=== PATIENT | female | born 1990 | race Caucasian/White ===

== ENCOUNTER 2018-04-19 10:05 | Inpatient (IN) ==
[2018-04-19] MEDS ORDERED: Ringers Solution, Lactated 1,000 ML IVC ONE (11:05)
[2018-04-19] MEDS ORDERED: Oxytocin 20 units/ LR 1000 mL 20 UNIT/1,000 ML BAG IVC ONE (11:05)
[2018-04-19] MEDS ORDERED: Famotidine 20 MG/2 ML VIAL IVP ONE (11:05)
[2018-04-19] MEDS ORDERED: Metoclopramide 10 MG/2 ML VIAL IVP ONE (11:05)
[2018-04-19] MEDS ORDERED: cefOXitin 1,000 MG in Water for inj. (sterile) 20 ML 10 ML IVP ONE (11:11)
[2018-04-19] MEDS ORDERED: MetroNIDAZOLE 500 MG/100 ML 500 MG/100 ML BAG IVPB ONE (11:11)
[2018-04-19] MEDS ORDERED: Oxytocin 20 units/ LR 1000 mL 20 UNIT/1,000 ML BAG IVC SCH (11:15)
[2018-04-19] MEDS ORDERED: Ringers Solution, Lactated 1,000 ML IVC SCH (11:15)
[2018-04-19 11:35] LABS: Basophils % 0.1 %; Eosinophils # 0.1 K/mcL (0.0-0.6); Eosinophils % 0.4 %; Hematocrit 35.1 % (35.3-44.9); Hemoglobin 11.6 g/dL (11.5-15.4); Immature Granulocytes % 0.5 % (0-4); Lymphocytes # 2.4 K/mcL (0.6-4.6); Lymphocytes % 19.6 %; Mean Corpuscular Hemoglobin 26.6 pg (28.0-33.3); Mean Corpuscular Volume 80.5 fL (83.0-100.0); Mean Platelet Volume 10.8 fL (9.4-12.4); Monocytes # 0.8 K/mcL (0.0-1.3); Monocytes % 6.5 %; Platelet Count 166 K/mcL (140-400); Red Blood Count 4.36 M/mcL (3.82-4.97); Red Cell Distribution Width 14.5 % (11.5-14.5); Segmented Neutrophils % 72.9 %
[2018-04-19 11:53] LABS: Amphetamine Screen,Urine Negative ng/mL (Cutoff=1000); Barbiturate Screen,Urine Negative ng/mL (Cutoff=200); Benzodiazepines Screen,Urine Negative ng/mL (Cutoff=200); Cannabinoid Screen,Urine Negative ng/mL (Cutoff = 50); Cocaine Screen,Urine Negative ng/mL (Cutoff= 300); Opiate Screen,Urine Negative ng/mL (Cutoff=300); Phencyclidine Screen,Urine Negative ng/mL (Cutoff=25)
--- NOTE | 2018-04-19 12:35 | OB/GYN History & Physical ---
Date of Encounter: 04/19/18 Time of Encounter: 12:33 Assessment and Plan (1) 39 weeks gestation of Current visit: Yes Status: Acute The patient is here for a repeat section. She does not want a tubal ligation. She has given informed consent (2) History of 2 sections Current visit: Yes Status: Chronic The patient is requesting a repeat section given her previous history (3) Gestational diabetes mellitus Current visit: Yes Status: Acute The patient reports good glucose control, hemoglobin A1c reassuring Qualifiers: Gestational diabetes mellitus control: diet-controlled Trimester: third trimester Qualified Code(s): O24.410 - Gestational diabetes mellitus in , diet controlled History of Present Illness Chief complaint: Scheduled repeat section HPI: Ms. Casiano is a 27 year old female 002 with an EDC of 04/23/18 x 9 week ultrasound who presents to labor and delivery for a scheduled repeat section. Her has been complicated by history of 2 previous sections, gestational diabetes for which the patient was infrequent with blood sugar logs but hemoglobin A1c was reassuring. She did have a positive urine drug screen for benzodiazepines which she states a family member had given her prior to attending a . Repeat drug screen was negative. The patient also is varicella nonimmune and should be vaccinated after delivery. She does not desire tubal ligation. 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 - Social History Smoking Status: Never smoker Smokeless Tobacco Status: No Alcohol use: none Drug use: other (As per history of present illness) - Family History Paternal Grandfather Living Status: Hx Family Cardiac Disorders: Yes (mi) Hx Family Respiratory Disorders: No Hx Family Cancer: Yes Hx Family Endocrine Disorder: Yes (dm) Obstetrical History - Pregnancies : 3 Para: 2 Term: 2 Livin Medications and Allergies Ferrous Sulfate 324 mg PO DAILY 01/15/15 [History] Vit/FA 1 each PO DAILY #14 tablet 03/08/15 [Rx] Allergy/AdvReac Type Severity Reaction Status Date / Time acetaminophen [From Percocet] AdvReac Nausea Verified 04/19/18 11:05 codeine AdvReac Nausea Verified 04/19/18 11:05 hydrocodone [From Vicodin] AdvReac Nausea Verified 04/19/18 11:05 Oxycodone [From Percocet] AdvReac Nausea Verified 04/19/18 11:05 Review of System OB All systems PM: reviewed and no additional remarkable complaints except as stated - Constitutional Constitutional ROS IM: weight gain - Muscloskeletal Musculoskeletal: myalgias - Integumentary Integumentary: change in hair (Hair loss) - Endocrine Endocrine: other (Gestational diabetes) Exam - Vital Signs Vital signs: Afebrile, vital signs stable - Constitutional Constitutional: well developed, well nourished, no acute distress, obese - HEENT HEENT: Normocephaly, Mucus Membranes Moist - Neck Neck exam: supple - Lungs Respiratory exam: CTAB - Cardiovascular Cardiovascular exam: RRR - Abdomen Abdomen: Present: bowel sounds normal, gravid, non tender - Extremities Extremities exam: pedal edema, warm - Vulva Vulva: bilateral: normal - Anus/Rectum Anus/Rectum: Present: normal perianal skin Results Result Diagrams: 04/19/18 11:18 04/19/18 11:18 Abnormal lab results WBC 12.4 K/mcL (4.3-11.1) H 04/19/18 11:18 Hct 35.1 % (35.3-44.9) L 04/19/18 11:18 MCV 80.5 fL (83.0-100.0) L 04/19/18 11:18 MCH 26.6 pg (28.0-33.3) L 04/19/18 11:18 Neutrophils # 9.0 K/mcL (1.6-8.9) H 04/19/18 11:18 All other labs normal. - VTE Documentation of Mechanical Device: Intermittent pneumatic compression device
--- NOTE | 2018-04-19 12:57 | Anesthesia Evaluation PreOp ---
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 HX Other Medical History: Diabetes Type II (gestational diabetes, controlled with diet) Alcohol Use: none Drug use: none, other (As per history of present illness) Medications and Allergies Ferrous Sulfate 324 mg PO DAILY 01/15/15 [History] Vit/FA 1 each PO DAILY #14 tablet 03/08/15 [Rx] Allergy/AdvReac Type Severity Reaction Status Date / Time acetaminophen [From Percocet] AdvReac Nausea Verified 04/19/18 11:05 codeine AdvReac Nausea Verified 04/19/18 11:05 hydrocodone [From Vicodin] AdvReac Nausea Verified 04/19/18 11:05 Oxycodone [From Percocet] AdvReac Nausea Verified 04/19/18 11:05 - Meds/Allergy Pre-op Review Medications Reviewed: Yes Allergies Reviewed: Yes Beta Blockers on Current Med List: No Anesthesia Results - Labs 04/19/18 11:18 04/19/18 11:18 Anesthesia Exam Weight: 101 kg. BMI 34 NPO (# of Hours): over 8 hours - HEENT Pupil (Motor): Pupils equal Mallampati: II Teeth: Normal Oral Opening: Greater than 3 - Cardiac Rhythm: Regular Murmur: None - Pulmonary Breath Sounds: bilateral Clear Respiratory Effort: Symmetrical Anesthesia Assess/Plan ASA Score: 2 Level of consciousness: Cooperative Anesthetic Plan: Spinal Monitoring Plan: Standard Monitors Recovery Plan: PACU ( 3 para 2 for elective repeat c/s. First c/s done under epidural, second under spinal. Discussed spinal anesthesia for this c/s. Patient agreed and consented.)
[2018-04-19] MEDS ORDERED: Bupivacaine/PF 0.75% in Dex 2 ML AMPUL INFILT ONE (14:20)
[2018-04-19] MEDS ORDERED: CefOXitin 2,000 MG VIAL ONE (14:31)
[2018-04-19] MEDS ORDERED: EPHEDrine 50 MG/ML VIAL ONE (14:48)
[2018-04-19] MEDS ORDERED: *HR* FentaNYL (PF) 100 MCG/2 ML VIAL ONE (14:48)
[2018-04-19] MEDS ORDERED: Water for inj. (sterile) 10 ML IV ONE (14:48)
[2018-04-19] MEDS ORDERED: Lidocaine -MPF 2% 5 ML VIAL ONE (14:48)
[2018-04-19] MEDS ORDERED: *HR* Morphine Sulfate/PF 10 MG/10 ML AMPUL ONE (14:48)
[2018-04-19] MEDS ORDERED: *HR* Oxytocin 10 UNIT/ML VIAL IM ONE ×2 (14:48)
[2018-04-19] MEDS ORDERED: *HR* Morphine 2 MG/ML SYRINGE IVP PRN (15:04)
[2018-04-19] MEDS ORDERED: Acetaminophen IV 1,000 MG/100 ML INFUS..BTL IVPB ONE ×2 (15:04→21:00)
[2018-04-19] MEDS ORDERED: *HR* HYDROmorphone (PF) 1 MG/ML SYRINGE IVP PRN (15:04)
[2018-04-19] MEDS ORDERED: Ondansetron 4 MG/2 ML VIAL IVP ONE (15:04)
[2018-04-19] MEDS ORDERED: *HR* Promethazine 25 MG/ML VIAL IVP PRN (15:04)
--- NOTE | 2018-04-19 15:44 | OB/GYN Procedure Note ---
Section - Date of procedure: 04/19/18 Preop diagnosis: desires repeat , other (Gestational diabetes, maternal obesity) Post-op diagnosis: same Procedure: section, repeat low transverse Surgeon: Sona Steward Blood Loss: 500 Was there an recreation assistant present: Yes Tire Recapper: Dona Connor Anesthesiologist: Janice Jimenez Senior Tax Specialist: Teri Mcadams Anesthesia Type: Spinal section complications: none Disposition: L&D Recovery Room Specimens: Placenta, Cord segment - Infant (s) Infant A Delivery Date: 04/19/18 Infant Delivery Time: 14:52 Presentation: vertex Position: unknown Route of delivery: other () Gender: Male Viability: Viable Pounds: 9 Ounces: 0 Gram Weight: 4.08 kg at 1 minute: 9 at 5 minutes: 10 Placenta: spontaneous, uterine exploration Cord: 3 umbilical vessels - Narrative Narrative: The patient was taken to the operating room and spinal anesthesia was given and tested to be adequate for abdominal and pelvic surgery. She was prepped and draped in the usual sterile fashion. Timeout was completed. A Pfannenstiel skin incision was made through the existing scar. The subcutaneous layer was sharply dissected down to the fascia. The fascia was incised in the midline and extended bilaterally. 2 straight Lorena clamps were placed on the inferior fascial edge and the fascia was bluntly and sharply dissected away from the rectus muscles. This was repeated superiorly. The rectus muscles were bluntly dissected. Peritoneum was bluntly entered and then extended superiorly and inferiorly. Anterior vaginal wall was checked to be free of adhesions. Good hemostasis noted. The Bladder blade was placed to protect the bladder. Vesicouterine peritoneum was incised and reflected inferiorly and the bladder blade was replaced to protect the bladder. A low transverse incision was then made through the lower uterine segment down to the amnion. This was bluntly extended bilaterally. The amnion was bluntly entered. This was followed by the vertex delivery of a viable and vigorous female weighing _7_#_13_oz with Apgars of _8/8_. was placed on the maternal abdomen. The cord was clamped and cut after a delay. was handed to the nursery care team. The placenta was delivered spontaneous and intact then the uterine cavity was digitally palpated and wiped clean with a moist lap sponge. There were no placental remnants identified. Clamps were placed on the uterine angles and the uterine incision was closed using 0 Vicryl suture in a running, locking fashion. A second imbricating layer completed the uterine closure with 0 Vicryl suture. Good hemostasis achieved. The pelvis was then irrigated with a copious amount of sterile water. And again good hemostasis was identified. The peritoneal edges and rectus muscles were then examined and found to be hemostatic. The fascia was then closed using 0 PDS loop in a running nonlocking fashion. Subcutaneous tissue was irrigated with sterile water, good hemostasis was achieved. The skin was then closed using a 4-0 Monocryl in a running subcuticular fashion. Dressing applied. Good hemostasis was noted. Estimated blood loss was 500cc. The Solorio was noted to be draining clear yellow urine at the end of the procedure. All sponge and instrument counts are correct at the end of the procedure. The patient was taken to the recovery room in stable condition.
[2018-04-19] MEDS ORDERED: Ondansetron 4 MG/2 ML VIAL IVP PRN (18:14)
[2018-04-19] MEDS ORDERED: Sennosides 8.6 MG TABLET PO PRN (18:14)
[2018-04-19] MEDS ORDERED: Metoclopramide 10 MG/2 ML VIAL IVP PRN (18:14)
[2018-04-19] MEDS ORDERED: Acetaminophen 325 MG TABLET PO PRN (18:14)
[2018-04-19] MEDS ORDERED: Simethicone 80 MG TAB.CHEW PO PRN (18:14)
--- NOTE | 2018-04-19 18:29 | Anesthesia Evaluation Post Op ---
Date of Encounter: 04/19/18 Time of Encounter: 17:20 - Vital Signs Vital Signs: VSS throughout PACU stay - Lungs Lungs: Clear Ascult./Percussion - Airway Airway: Non-obstructed - Cardiovascular Regular Rate - Mental Status Mental Status: Alert & Oriented, Answers Appropriately - Pain Pain Scale: 0 Pain Scale used: Numeric (1 - 10) - Nausea Vomiting Nausea Vomiting: Present (no emesis. Better after one dose of zofran.) - Hydration Hydration: NPO, Solorio catheter - Discharge PostOp Status: Transfer Patient to floor
[2018-04-19] MEDS: Oxytocin 20 units/ LR 1000 mL 20 UNIT/1,000 ML BAG IVC SCH (21:23)
[2018-04-20 04:56] LABS: Basophils % 0.1 %; Eosinophils % 0.2 %; Hematocrit 32.3 % (35.3-44.9); Hemoglobin 10.5 g/dL (11.5-15.4); Immature Granulocytes % 0.4 % (0-4); Lymphocytes % 14.3 %; Mean Corpuscular HGB Conc 32.5 g/dL (31.6-35.5); Mean Corpuscular Hemoglobin 26.6 pg (28.0-33.3); Mean Platelet Volume 11.2 fL (9.4-12.4); Monocytes % 7.2 %; Neutrophils # 10.6 K/mcL (1.6-8.9); Platelet Count 129 K/mcL (140-400); Red Blood Count 3.94 M/mcL (3.82-4.97); Segmented Neutrophils % 77.8 %
[2018-04-20] MEDS: Ibuprofen 600 MG TABLET PO SCH ×3 (05:58→22:24)
[2018-04-20] MEDS: Oxytocin 20 units/ LR 1000 mL 20 UNIT/1,000 ML BAG IVC SCH (05:59)
--- NOTE | 2018-04-20 09:22 | OB/GYN Progress Note ---
Date of Encounter: 04/20/18 Time of Encounter: 09:20 - Assessment and Plan (1) Status post repeat low transverse section Current Visit: Yes Status: Acute Continue routine / postop care Anticipate discharge home tomorrow Subjective - Subjective Principal diagnosis: Repeat C/S Interval history: S/P Repeat C/S day 1 Pain well controlled Lochia light without clots VSS Tolerating regular diet Passing flatus and urinating without difficulty Discharge home tomorrow Patient reports: appetite normal, voiding normally, pain well controlled, ambulating normally [place]: doing well, nursing well Objective - Vital Signs Latest vital signs: Vital Signs Temp Pulse Pulse Resp BP Pulse Ox 04/20/18 08:15 98.4 F 77 16 102/59 97 04/19/18 22:45 98.6 F 84 84 15 103/65 97 04/19/18 20:45 98.1 F 88 16 123/71 97 04/19/18 19:00 98.3 F 86 20 107/66 98 04/19/18 18:30 98.6 F 81 20 100/63 97 04/19/18 18:00 98.3 F 83 20 101/66 98 04/19/18 17:38 98.3 F 92 92 16 110/67 98 04/19/18 17:23 98.2 F 94 94 16 104/64 99 04/19/18 17:08 98.2 F 91 91 16 108/62 99 04/19/18 16:58 98.2 F 103 103 16 97/65 98 04/19/18 16:38 98.2 F 86 86 14 114/73 98 04/19/18 16:08 97.8 F 88 88 16 106/78 99 Intake and Output 04/19/18 04/20/18 04/20/18 23:59 07:59 15:59 Intake Total 0 / 0 1200 / 1200 Output Total 550 / 550 1200 / 1200 Balance -550 / -550 0 / 0 Intake: IV Fluids 1000 / 1000 Pitocin 20 unit In 1,000 ml @ 1000 / 1000 125 mls/hr IVC .Q8H ROBBIE Rx#: [id number] Oral 0 / 0 200 / 200 Output: Urine 1200 / 1200 Emesis 300 / 300 Catheter 250 / 250 Other: Weight 109.1 kg 105.2 kg Patient Weight 04/20/18 23:59 Weight 105.2 kg - Exam Lungs: bilateral: normal Chest: Normal S1, Normal S2 Extremities: Present: normal Abdomen: Present: normal appearance, soft. Absent: gravid Incision: Present: normal (Dressing C/D/I), dry, intact Uterus: Present: normal, firm Fundal Height: 0 (@ U) - Labs Labs: Laboratory Results - last 24 hr 04/19/18 04/19/18 04/19/18 11:18 11:18 11:18 WBC 12.4 H RBC 4.36 Hgb 11.6 Hct 35.1 L MCV 80.5 L MCH 26.6 L MCHC 33.0 RDW 14.5 Plt Count 166 MPV 10.8 Immature Gran % 0.5 Seg Neutrophils % 72.9 Lymphocytes % 19.6 Monocytes % 6.5 Eosinophils % 0.4 Basophils % 0.1 Neutrophils # 9.0 H Lymphocytes # 2.4 Monocytes # 0.8 Eosinophils # 0.1 Basophils # 0.0 Glucose Urine Opiates Screen Negative Ur Barbiturates Screen Negative Ur Phencyclidine Scrn Negative Ur Amphetamines Screen Negative U Benzodiazepines Scrn Negative Urine Cocaine Screen Negative U Marijuana (THC) Screen Negative Ur Drug Screen Interp See Below Hep Bs Antigen Nonreactive 04/19/18 04/20/18 11:18 04:23 WBC 13.7 H RBC 3.94 Hgb 10.5 L Hct 32.3 L MCV 82.0 L MCH 26.6 L MCHC 32.5 RDW 14.0 Plt Count 129 L MPV 11.2 Immature Gran % 0.4 Seg Neutrophils % 77.8 Lymphocytes % 14.3 Monocytes % 7.2 Eosinophils % 0.2 Basophils % 0.1 Neutrophils # 10.6 H Lymphocytes # 2.0 Monocytes # 1.0 Eosinophils # 0.0 Basophils # 0.0 Glucose 93 Urine Opiates Screen Ur Barbiturates Screen Ur Phencyclidine Scrn Ur Amphetamines Screen U Benzodiazepines Scrn Urine Cocaine Screen U Marijuana (THC) Screen Ur Drug Screen Interp Hep Bs Antigen
[2018-04-20] MEDS: *HR* HYDROmorphone 2 MG TABLET PO PRN ×2 (13:15→20:32)
[2018-04-20] MEDS: Prenatal Vit/FA 1 EACH TABLET PO SCH (13:15)
[2018-04-21] MEDS: *HR* HYDROmorphone 2 MG TABLET PO PRN ×2 (02:51→07:43)
[2018-04-21] MEDS: Ibuprofen 600 MG TABLET PO SCH ×2 (06:17→12:28)
[2018-04-21] MEDS: Prenatal Vit/FA 1 EACH TABLET PO SCH (07:43)
[2018-04-21 08:29] VITALS: BP 121/85
--- NOTE | 2018-04-21 10:10 | Discharge Summary ---
Date of Encounter: 04/21/18 Time of Encounter: 10:08 - Discharge Diagnosis (1) Breast feeding status of mother Priority: Secondary Status: Acute Comments: support prn (2) Status post repeat low transverse section Priority: Secondary Status: Acute Comments: Continue routine postop/ care discharge home today follow up with Dr. Jose in 2 weeks for incision check - Discharge Medications Prescriptions: HYDROmorphone [Dilaudid] 1 mg PO Q4HR PRN 5 Days #30 tablet PRN Reason: Moderate Pain Ibuprofen [Motrin] 600 mg PO Q6HR #60 tablet Docusate [Colace] 100 mg PO BID #60 capsule Home Medications: Docusate [Colace] 100 mg PO BID #60 capsule 04/21/18 [Rx] HYDROmorphone [Dilaudid] 1 mg PO Q4HR PRN 5 Days #30 tablet 04/21/18 [Rx] Ibuprofen [Motrin] 600 mg PO Q6HR #60 tablet 04/21/18 [Rx] Vit/FA 1 each PO DAILY tablet 04/21/18 [Rx] Allergies/Adverse Reactions: Allergy/AdvReac Type Severity Reaction Status Date / Time acetaminophen [From Percocet] AdvReac Nausea Verified 04/19/18 11:05 codeine AdvReac Nausea Verified 04/19/18 11:05 hydrocodone [From Vicodin] AdvReac Nausea Verified 04/19/18 11:05 Oxycodone [From Percocet] AdvReac Nausea Verified 04/19/18 11:05 Data Procedures and tests throughout hospitalization: Laboratory Tests 04/19/18 04/19/18 04/19/18 11:18 11:18 11:18 WBC 12.4 H RBC 4.36 Hgb 11.6 Hct 35.1 L MCV 80.5 L MCH 26.6 L MCHC 33.0 RDW 14.5 Plt Count 166 MPV 10.8 Immature Gran % 0.5 Seg Neutrophils % 72.9 Lymphocytes % 19.6 Monocytes % 6.5 Eosinophils % 0.4 Basophils % 0.1 Neutrophils # 9.0 H Lymphocytes # 2.4 Monocytes # 0.8 Eosinophils # 0.1 Basophils # 0.0 Glucose Urine Opiates Screen Negative Ur Barbiturates Screen Negative Ur Phencyclidine Scrn Negative Ur Amphetamines Screen Negative U Benzodiazepines Scrn Negative Urine Cocaine Screen Negative U Marijuana (THC) Screen Negative Ur Drug Screen Interp See Below Hep Bs Antigen Nonreactive 04/19/18 04/20/18 11:18 04:23 WBC 13.7 H RBC 3.94 Hgb 10.5 L Hct 32.3 L MCV 82.0 L MCH 26.6 L MCHC 32.5 RDW 14.0 Plt Count 129 L MPV 11.2 Immature Gran % 0.4 Seg Neutrophils % 77.8 Lymphocytes % 14.3 Monocytes % 7.2 Eosinophils % 0.2 Basophils % 0.1 Neutrophils # 10.6 H Lymphocytes # 2.0 Monocytes # 1.0 Eosinophils # 0.0 Basophils # 0.0 Glucose 93 Urine Opiates Screen Ur Barbiturates Screen Ur Phencyclidine Scrn Ur Amphetamines Screen U Benzodiazepines Scrn Urine Cocaine Screen U Marijuana (THC) Screen Ur Drug Screen Interp Hep Bs Antigen Date of admission: 04/19/18 10:05 Primary care physician: PCP NONE Discharging clinician: Jocelyn Barroso Anticipated date of discharge: 04/21/18 - Patient Status Disposition: Home, Self-Care Condition: Good Functional capacity at discharge: independent ambulation - Discharge Instructions Follow Up With: NONE,PCP [Primary Care Provider] - Sona Jose MD [Partnered Physician] - - Diet and Activity Activity: increase activity as tolerated Diet: regular diet Hospital Course Procedures: OARRS report reviewed prior to discharge per MARY Castaneda Reason for admission: section Delivery: section Episiotomy: none Laceration: none Other procedures: none complications: none Discharge diagnosis: IUP at term delivered [place] baby: male (breast feeding) Time Attestation: Total time spent providing and/or coordinating discharge services: Time Spent: Less than 30 minutes - VTE Documentation of Mechanical Device: Intermittent pneumatic compression device Exam - Constitutional Vitals: Temp Pulse Resp BP Pulse Ox 98 F 82 16 121/85 98 04/21/18 08:27 04/21/18 08:27 04/21/18 08:27 04/21/18 08:27 04/21/18 08:27 General appearance IM: A&O X 3, pleasant, answers questions appropriately - Respiratory Respiratory exam: Present: CTAB - Cardiovascular Cardiovascular exam IM: Present: RRR, +S1, +S2 - GI/Abdominal GI/Abdominal exam IM: normal bowel sounds Incision: normal, dry, dressed (Tammi dressing and binder) - Uterine Tone: Firm Uterus Position: 2 Fingers Below Umbilicus, Midline - Extremities Exam Extremities exam IM: Present: full ROM, normal capillary refill, normal inspection - Neurological Exam Neurological exam: alert, oriented X3, reflexes normal
== END 2018-04-21 12:31 | disposition home or self-care (01) | DRG 540 ==
LOC: 1NENULAB 10:05 → 1NENUOBS 18:06
PROVIDERS: ADMIT Obstetrics & Gynecology; ATTEND Obstetrics & Gynecology

== ENCOUNTER 2021-11-11 07:11 | Inpatient (IN) ==
[2021-11-11 06:04] LABS: Bilirubin,Urine Negative (Negative); Blood,Urine Negative (Negative); Clarity,Urine Clear (Clear); Color,Urine Light-Yellow (Yellow); Glucose,Urine (UA) Normal (Normal); Ketones,Urine Negative (Negative); Leukocyte Esterase,Urine Negative (Negative); Nitrite,Urine Negative (Negative); PH,Urine 6.5 pH Units (5.0-8.0); Protein,Urine Negative (Neg-Trace); Specific Gravity,Urine 1.011 (1.010-1.025); Urobilinogen,Urine Normal (Normal)
[2021-11-11 06:55] LABS: Basophils % 0.1 %; Eosinophils # 0.1 K/mcL (0.0-0.6); Eosinophils % 0.6 %; Hemoglobin 11.3 g/dL (11.5-15.4); Immature Granulocytes % 0.5 % (0-4); Lymphocytes # 2.7 K/mcL (0.6-4.6); Lymphocytes % 19.5 %; Mean Corpuscular HGB Conc 32.3 g/dL (31.6-35.5); Mean Corpuscular Hemoglobin 26.7 pg (28.0-33.3); Mean Corpuscular Volume 82.5 fL (83.0-100.0); Mean Platelet Volume 10.6 fL (9.4-12.4); Monocytes # 0.9 K/mcL (0.0-1.3); Monocytes % 6.8 %; Neutrophils # 9.9 K/mcL (1.6-8.9); Platelet Count 185 K/mcL (140-400); Red Blood Count 4.24 M/mcL (3.82-4.97); Red Cell Distribution Width 14.4 % (11.5-14.5); Segmented Neutrophils % 72.5 %; White Blood Count 13.6 K/mcL (4.3-11.1)
[~2021-11-11 07:11] MED LIST: *HR* HYDROmorphone PF 0.5 MG/0.5 ML SYRINGE IVP PRN; *HR* Meperidine 25 MG/ML SYRINGE IVP PRN; Acetaminophen IV 1,000 MG/100 ML BAG IVPB PRN; CeFAZolin Syr 3,000MG/30 ML 3,000 MG/30 ML SYRINGE IVPB ONE; Famotidine 20 MG/2 ML VIAL IVP ONE; Metoclopramide 10 MG/2 ML VIAL IVP ONE; OXYTOCIN/RINGERS LACTATE 10 UNIT/166.6 ML BAG IVC ONE; Promethazine 6.25 MG in Water for inj. (sterile) 20 ML IVPB PRN; Ringers Solution, Lactated 1,000 ML IVC SCH
[2021-11-11] MEDS ORDERED: *HR* Morphine Sulfate/PF 10 MG/10 ML AMPUL ONE (07:12)
[2021-11-11] MEDS ORDERED: EPHEDrine 50 MG/ML VIAL ONE (07:12)
[2021-11-11] MEDS ORDERED: *HR* FentaNYL (PF) 100 MCG/2 ML VIAL ONE (07:12)
[2021-11-11] MEDS ORDERED: Acetaminophen IV 1,000 MG/100 ML BAG IVPB ONE (07:12)
[2021-11-11] MEDS ORDERED: Ondansetron 4 MG/2 ML VIAL ONE (07:27)
[2021-11-11] MEDS ORDERED: Oxytocin 30 UNIT/503 ML BAG IVC SCH ×2 (07:30→13:44)
[2021-11-11] MEDS ORDERED: Ringers Solution, Lactated 1,000 ML ONE (08:14)
[2021-11-11] MEDS ORDERED: Ketorolac 30 MG/ML VIAL ONE (09:11)
[2021-11-11 09:30] LABS: Amphetamine Screen,Urine Negative ng/mL (Cutoff=1000); Barbiturate Screen,Urine Negative ng/mL (Cutoff=200); Benzodiazepines Screen,Urine Negative ng/mL (Cutoff=200); Cannabinoid Screen,Urine Negative ng/mL (Cutoff = 50); Cocaine Screen,Urine Negative ng/mL (Cutoff= 300); Opiate Screen,Urine Negative ng/mL (Cutoff=300); Phencyclidine Screen,Urine Negative ng/mL (Cutoff=25)
[2021-11-11] MEDS ORDERED: Metoclopramide 10 MG/2 ML VIAL IVP PRN (13:44)
[2021-11-11] MEDS ORDERED: Simethicone 80 MG TAB.CHEW PO PRN (13:44)
[2021-11-11] MEDS ORDERED: Ringers Solution, Lactated 1,000 ML IVC SCH (13:44)
[2021-11-11] MEDS ORDERED: Ondansetron 4 MG/2 ML VIAL IVP PRN (13:44)
[2021-11-11] MEDS ORDERED: DOXYLAMINE SUCCINATE 25 MG PO SCH (21:00)
[2021-11-12] MEDS: Ibuprofen 600 MG TABLET PO SCH ×4 (01:14→20:25)
[2021-11-12] MEDS: Acetaminophen 325 MG TABLET PO SCH ×3 (01:15→20:25)
[2021-11-12 04:36] LABS: Basophils % 0.2 %; Eosinophils # 0.1 K/mcL (0.0-0.6); Eosinophils % 0.7 %; Hematocrit 27.9 % (35.3-44.9); Hemoglobin 9.1 g/dL (11.5-15.4); Immature Granulocytes % 0.6 % (0-4); Lymphocytes # 2.6 K/mcL (0.6-4.6); Lymphocytes % 18.5 %; Mean Corpuscular HGB Conc 32.6 g/dL (31.6-35.5); Mean Corpuscular Hemoglobin 27.2 pg (28.0-33.3); Mean Corpuscular Volume 83.5 fL (83.0-100.0); Mean Platelet Volume 10.8 fL (9.4-12.4); Monocytes % 7.3 %; Platelet Count 156 K/mcL (140-400); Red Blood Count 3.34 M/mcL (3.82-4.97); Red Cell Distribution Width 14.5 % (11.5-14.5); Segmented Neutrophils % 72.7 %; White Blood Count 13.8 K/mcL (4.3-11.1)
[2021-11-12] MEDS: Prenatal Vit/FA 1 EACH TABLET PO SCH (08:30)
[2021-11-13] MEDS: Ondansetron ODT 4 MG TAB.RAPDIS SL PRN ×2 (02:19→08:25)
[2021-11-13] MEDS: *HR* OxyCODONE Immed Rel 5 MG TABLET PO PRN ×2 (02:20→08:25)
[2021-11-13] MEDS: Acetaminophen 325 MG TABLET PO SCH ×2 (04:02→11:10)
[2021-11-13] MEDS: Ibuprofen 600 MG TABLET PO SCH ×2 (04:02→11:11)
[2021-11-13 08:05] VITALS: BP 104/66; PULSE 79; TEMP 98; O2SAT 97
[2021-11-13] MEDS: Prenatal Vit/FA 1 EACH TABLET PO SCH (08:24)
[2021-11-14 09:24] LABS: Influenza A PCR Negative (Negative); Influenza B PCR Negative (Negative); Resp. Syncytial Virus PCR Negative (Negative); SARS-CoV-2 by PCR (In House) Negative (Negative)
== END 2021-11-13 14:10 | disposition home or self-care (01) | DRG 539 ==
LOC: 1NENULAB → 1NENUOBS 11:50
PROVIDERS: ADMIT Student in an Organized Health Care Education/Training Program; ATTEND Student in an Organized Health Care Education/Training Program